=== PATIENT | female | born 1950 | race Caucasian/White ===

== ENCOUNTER → 2024-02-25 08:37 | Outpatient (CLI) | payer MEDICARE, OTHER, SELFPAY ==
--- NOTE | 2024-02-25 08:40 | DI.MRI.S_ITS ---
PROCEDURE: MR LUMBAR SPINE WO CON INDICATIONS: RADICULOPATHY LUMBAR REGION TECHNIQUE: Noncontrast sagittal T1 spin echo and T2 fast echo, sagittal STIR, and T2 fast spin echo through the lumbar spine. In cases with scoliosis, additional coronal T2 fast spin echo may be performed. COMPARISON: None. FINDINGS: Image quality: Excellent. Alignment and Curvature: Mild levoconvex scoliosis of the lumbar spine. Minimal retrolisthesis of L1 on L2 and grade 1 retrolisthesis of L3 on L4. Grade 1 anterolisthesis of L5 on S1. Bone Marrow: Marrow is of normal overall signal. No acute vertebral body compression fractures. Multiple Schmorl nodes. Spinal Cord: Conus medullaris terminates at the L1 level. Visualized cord demonstrates normal signal and size. Paraspinous Soft Tissues: No paravertebral masses. Intervertebral discs: Multilevel disc desiccation and height loss. T12-L1: Dorsal disc bulge with corresponding annular fissure mildly effaces the ventral thecal sac. Mild right foraminal narrowing. The left foramen is patent. There is bilateral facet arthropathy and ligamentum flavum hypertrophy. L1-L2: Dorsal disc bulge mildly effaces the ventral thecal sac. There is a tiny central disc protrusion. No significant foraminal stenosis. There is bilateral facet arthropathy and ligamentum flavum hypertrophy. L2-L3: Dorsal disc bulge and ligamentum flavum hypertrophy result in mild narrowing of the spinal canal. No significant foraminal stenosis. There is bilateral facet arthropathy. L3-L4: Dorsal disc bulge and ligamentum flavum hypertrophy result in mild narrowing of the spinal canal. No significant foraminal stenosis. There is bilateral facet arthropathy. L4-L5: Dorsal disc bulge and ligamentum flavum hypertrophy result in moderate spinal canal stenosis. Moderate bilateral foraminal stenosis. There is bilateral facet arthropathy. L5-S1: Dorsal disc bulge results in mild narrowing of the spinal canal. Moderate bilateral foraminal stenosis. Bilateral facet arthropathy. IMPRESSION: 1. Multilevel degenerative disc disease as described above. The worst level is at L4-L5 which demonstrates moderate spinal canal stenosis and moderate bilateral foraminal stenosis. 2. Minimal retrolisthesis of L1 on L2 and grade 1 retrolisthesis of L3 on L4. Grade 1 anterolisthesis of L5 on S1. 3. Mild levoconvex scoliosis of the lumbar spine. Dictated by: Sekou Seymour M.D. on 02/25/2024 at 13:15 Approved by: Sekou Seymour M.D. on 02/25/2024 at 13:52
== END ==
LOC: MRI 08:39
PROVIDERS: Family Provider Family Medicine; PCP Internal Medicine; Referring Provider Physical Medicine & Rehabilitation; Visit Provider Physical Medicine & Rehabilitation
DX: M51.16 Intervertebral disc disorders with radiculopathy, lumbar region (principal); M48.061 Spinal stenosis, lumbar region without neurogenic claudication; M43.16 Spondylolisthesis, lumbar region; M43.17 Spondylolisthesis, lumbosacral region; M41.9 Scoliosis, unspecified
CPT/HCPCS: 72148